=== PATIENT | female | born 1995 | race African-American/Black ===

== ENCOUNTER 2018-09-22 06:57 | Emergency (ER) | payer OTHER ==
[~2018-09-22] VITALS: Ht 162.6 cm; Wt 70.9 kg
[2018-09-22] MEDS ORDERED: ACETAMINOPHEN TAB 650MG DOSE (2X325MG) PO ONE (07:30)
[2018-09-22] MEDS ORDERED: METOCLOPRAMIDE INJ 10MG/2ML VIAL (J2765) IV ONE (07:45)
[2018-09-22] MEDS ORDERED: METOCLOPRAMIDE 10 MG TAB PO ONE (08:30)
--- NOTE | 2018-09-22 08:39 | REP ---
FIRST TRIMESTER ULTRASOUND: Real-time sonographic evaluation of the gravid uterus performed. There is a single living intrauterine gestation. Estimated gestational age is 11 weeks 5 days based on a crown-rump length of 50 mm. heart rate 171 beats per minute. There is no subchorionic hemorrhage. No maternal adnexal region abnormality is seen. Electronically Signed by Del Palomares MD 09/25/2018 05:00 P
[2018-09-22 08:46] LABS: HEMATOCRIT 38.4 % (36.0-47.0); HEMOGLOBIN 12.8 g/dl (12.0-15.5); MEAN CORPUSCULAR HEMOGLOBIN 26.7 pg (27.0-33.0); MEAN CORPUSCULAR HGB CONC 33.3 g/dl (32.0-36.5); MEAN CORPUSCULAR VOLUME 80.2 fl (80.0-96.0); PLATELET COUNT, AUTOMATED 229 10^3/uL (150-450); RED BLOOD COUNT 4.79 10^6/uL (4.00-5.40); WHITE BLOOD COUNT 7.3 10^3/uL (4.0-10.0)
[2018-09-22 10:50] VITALS: BP 115/72
== END 2018-09-22 10:51 | disposition home or self-care (01) ==
LOC: M ED 06:57
DX: O20.0 Threatened abortion (principal); Z3A.11 11 weeks gestation of pregnancy

== ENCOUNTER 2019-04-11 08:05 | Outpatient (CLI) | payer OTHER ==
[~2019-04-11] VITALS: Ht 160 cm; Wt 86.7 kg
[2019-04-11 08:25] VITALS: BP 139/89
[2019-04-11 08:42] VITALS: BP 134/78
--- NOTE | 2019-04-11 08:53 | IPNPDOC ---
Text Note Date of Service The patient was seen on 04/11/19. NOTE patient is a 24 yo G1 @ 39wks gestation presents for regular contraction. denies lof/vb. +FM. vitals: normal NAD, laying in bed abd: gravid, soft, nt, cephalic by yanet fht: 135/mod efrem/pos accel/ no decel toco: ctx q 2-5mins ce: 05/12/-3 (per nursing check) a/p patient in early labor. discussed return precautions. return as needed. DO Irina VS,Carol, I+O VS, Rosae, I+O Vital Signs Date Time Temp Pulse Resp B/P (MAP) Pulse Ox O2 Delivery O2 Flow Rate FiO2 04/11/19 08:31 100 04/11/19 08:25 98.1 93 18 139/89 (106) ALLYSON GUERRA DO Apr 11, 2019 08:53
== END 2019-04-11 09:00 | disposition home or self-care (01) ==
LOC: M LDO 08:05
PROVIDERS: ATTEND Obstetrics & Gynecology
DX: O47.1 False labor at or after 37 completed weeks of gestation (principal); Z3A.39 39 weeks gestation of pregnancy
CPT/HCPCS: 59025; G0378; G0463

== ENCOUNTER 2019-04-14 02:02 | Outpatient (CLI) | payer OTHER ==
[~2019-04-14] VITALS: Ht 162.6 cm; Wt 86.8 kg
[2019-04-14 02:20] VITALS: BP 136/89
[2019-04-14] MEDS ORDERED: ONDANSETRON 4MG/2ML VIAL (J2405) IV PRN (02:45)
[2019-04-14] MEDS ORDERED: BUTORPHANOL 2 MG/ML INJ (J0595) IV ONE (02:45)
[2019-04-14 02:58] VITALS: BP 137/82
[2019-04-14 06:00] VITALS: BP 133/83
[2019-04-14 07:08] VITALS: BP 123/73
--- NOTE | 2019-04-14 07:21 | IPNPDOC ---
Text Note Date of Service The patient was seen on 04/14/19. NOTE 24 yo at 40+2 weeks gestation presented to L&D with the complaint of regular, painful contractions. She denies any vaginal bleeding or leakage of fluid. She endorses excellent movement. Chaperoned by L&D RN Vitals - VSS, afebrile, normotensive, non tachycardic General - AAOX3, sitting up in bed, uncomfortable appearing Abdomen - Gravid uterus, no fundal tenderness Cervix - 50/-3. Patient declined repeat cervical exam 4 hours later. FHR tracing - Cat I with moderate variability, +accels, no decels throughout monitoring. Sporadic ctx on toco. 2mg IV stadol given for therapeutic rest. Ivon is not in active labor. She got excellent pain relief from IV medication and actually declined a repeat cervical exam 4 hours later and wanted to return home. Contractions were sporadic on toco. Reassuring status throughout monitoring. Discharged home with return precautions. Follow up appointment scheduled for Tuesday. DO SANJAY Lindsey Fishbone I+O VSCarol, I+O Vital Signs Date Time Temp Pulse Resp B/P (MAP) Pulse Ox O2 Delivery O2 Flow Rate FiO2 04/14/19 07:08 89 18 123/73 (90) 04/14/19 06:00 97.9 BRENT PENA DO Apr 14, 2019 07:21
[2019-04-15] MEDS ORDERED: MAPA500T2 PO (19:06)
== END 2019-04-14 07:29 | disposition home or self-care (01) ==
LOC: M LDO 02:02
PROVIDERS: ATTEND Obstetrics & Gynecology
DX: O26.893 Other specified pregnancy related conditions, third trimester (principal); O47.1 False labor at or after 37 completed weeks of gestation; Z3A.40 40 weeks gestation of pregnancy
CPT/HCPCS: 59025; 96374; G0378; G0463; J0595

== ENCOUNTER 2019-04-15 17:57 | Outpatient (CLI) | payer OTHER ==
[~2019-04-15] VITALS: Ht 162.6 cm; Wt 84.4 kg
[2019-04-15 18:10] VITALS: BP 140/90
[2019-04-15 18:43] VITALS: BP 131/84
--- NOTE | 2019-04-15 18:57 | IPNPDOC ---
Text Note Date of Service The patient was seen on 04/15/19. NOTE patient is a 24 yo G1 @ 40+3wks gestation presents with concern for regular painful contractions. unable to sleep due to contractions. denies LOF/VB. +FM Vitals: 131/84, HR: 102 nad, laying in bed abd: gravid, soft, nt, cephalic by yanet fht: 125/mod efrem/pos accel/no decel toco: ctx q5mins ce: /high (per nursing exam) a/p patient is @ 40+3wks, no in active labor. Discussed return precautions. patient given unisom 25mg prn for sleep aide. return as needed. DO Irina VS,Carol, I+O VS, Fishleoe, I+O Vital Signs Date Time Temp Pulse Resp B/P (MAP) Pulse Ox O2 Delivery O2 Flow Rate FiO2 04/15/19 18:10 97 20 140/90 (107) ALLYSON GUERRA DO Apr 15, 2019 18:57
[2019-04-15] MEDS ORDERED: MAPA500T2 PO (19:06)
[2019-04-16] MEDS ORDERED: UNIS25TA3 PO (03:56)
== END 2019-04-15 19:13 | disposition home or self-care (01) ==
LOC: M LDO 17:57
PROVIDERS: ATTEND Obstetrics & Gynecology
DX: O47.1 False labor at or after 37 completed weeks of gestation (principal); Z3A.40 40 weeks gestation of pregnancy
CPT/HCPCS: 59025; G0378; G0463

== ENCOUNTER 2019-04-16 02:25 | Inpatient (IN) | payer OTHER ==
[~2019-04-16] VITALS: Ht 162.6 cm; Wt 84.2 kg
[2019-04-16] VITALS (44 sets, daily range): BP systolic 107–148; BP diastolic 58–106
[~2019-04-16 02:25] MED LIST: MAPA500T2 PO
[2019-04-16] MEDS ORDERED: NALBUPHINE HCL 10 MG/ML AMP (J2300) IM ONE (03:45)
[2019-04-16] MEDS ORDERED: PROMETHAZINE INJ 25 MG/ML VIAL (J2550) IV ONE (03:45)
[2019-04-16] MEDS ORDERED: NALBUPHINE HCL 10 MG/ML AMP (J2300) IV ONE (03:45)
[2019-04-16] MEDS ORDERED: UNIS25TA3 PO (03:56)
--- NOTE | 2019-04-16 03:59 | IPNPDOC ---
Text Note Date of Service The patient was seen on 04/16/19. NOTE patient is a 24 yo G1 @ 40+4wks gestation presents with concern for regular painful contractions. unable to sleep due to contractions. denies LOF/VB. +FM patient desires pain medication. Vitals: 135/89, HR: 91 nad, laying in bed abd: gravid, soft, nt, cephalic by yanet fht: 125/mod efrem/pos accel/no decel toco: ctx q5mins ce: /-3 (per nursing exam) a/p patient is @ 40+4wks in latent labor. will give IV pain medications and recheck once patient wakes up. DO Irina VS,Carol, I+O VS, Rosae, I+O Vital Signs Date Time Temp Pulse Resp B/P (MAP) Pulse Ox O2 Delivery O2 Flow Rate FiO2 04/16/19 02:43 98.2 91 18 135/89 (104) ALLYSON GUERRA DO Apr 16, 2019 03:59
[2019-04-16] MEDS ORDERED: LR 1,000 ML IV ONE (04:00)
[2019-04-16 05:02] LABS: HEMATOCRIT 33.5 % (36.0-47.0); HEMOGLOBIN 10.4 g/dl (12.0-15.5); MEAN CORPUSCULAR VOLUME 74.1 fl (80.0-96.0); PLATELET COUNT, AUTOMATED 248 10^3/uL (150-450); RED BLOOD COUNT 4.52 10^6/uL (4.00-5.40); WHITE BLOOD COUNT 15.5 10^3/uL (4.0-10.0)
[2019-04-16] MEDS ORDERED: OXYTOCIN DRIP 30 UNITS in IV 1 EA IV SCH ×2 (12:00→21:55)
[2019-04-16] MEDS ORDERED: LR 1,000 ML IV SCH (12:00)
--- NOTE | 2019-04-16 12:06 | HPEPDOC ---
Obstetrical History & Physical General Date of Admission Apr 16, 2019 at 03:08 History of Present Illness 24 yo at 40+4 weeks gestation by LMP of 06Jul2018 c/w 8+5 week US on 05Sep2018 presented to L&D overnight with the complaint of regular, painful contractions. She has been seen numerous times on L&D over the last week with the same complaint. She made cervical change from 1cm to 4cm as of this this morning. She denies any vaginal bleeding or leakage of fluid. She endorses excellent movement. 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: No pertinent history, Spontaneous Past Medical History Medical History Sickle cell carrier --> FOB tested and negative Surgical History: Denies/None Family History Significant Family History: No pertinent family hx Social History Marital Status: Family situation: Spouse/partner home Psychosocial History: No pertinent psych hx * Smoker: non-smoker Alcohol: Denies Drugs: denies Imunizations Tdap status: current Influenza Status: current Allergies Coded Allergies: No Known Drug Allergies (Verified Allergy, Unknown, 09/22/18) Medications Scheduled Doxylamine Succinate (Unisom Sleep Aid) 25 Mg Tablet, 2 TAB PO QPM Miscellaneous Medications Acetaminophen (Mapap) 500 Mg Tablet, 1,000 MG PO Physical Examination Physical Examination GENERAL: Alert and oriented times three. ABDOMEN: Gravid and non-tender to touch. FETUS: Is vertex (VTX) by sterile vaginal examination (SVE) EXTREMITIES: No edema. Vital Signs/I&O Vital Signs Date Time Temp Pulse Resp B/P (MAP) Pulse Ox O2 Delivery O2 Flow Rate FiO2 04/16/19 11:32 98.6 95 16 134/81 (98) Laboratory Data 24H LABS Laboratory Tests 2 04/16/19 03:11: Serology Scanned Report Hepatitis B Testing 04/16/19 04:32: Nucleated Red Blood Cells % (auto) 0.0 CBC/BMP Laboratory Tests 04/16/19 04:32 Pertinent Laboratoy Data Blood Type: A+ RBC Antibody Screen: Negative HIV: Negative Hepatitis B: Negative Hepatitis C: Unknown Rapid Plasma Reagin: Nonreactive Rubella: Immune Varicella: Immune Chlamydia/Gonorrhea: Negative Group B Streptococcus: Negative Quad Screen Test: Unknown Cystic Fibrosis: Negative Glucose Tolerance Test: 130 Anatomy Ultrasound Ultrasound Date: Dec 25, 2018 Placenta Location: Posterior Normal Anatomy: Yes Placenta Previa: No Steroid Therapy Steroid Therapy: No Vaginal Examination Dilation: 4 cm Effacement: 80% Station: -3 Cervical Consistency: Soft Cervical Position: Middle Presentation: Cephalic presentation Position: Vertex (occiput) Assessment Heart Rate (FHR): 150 Variability: Moderate Accelerations: Positive Decelerations: None Tocometer Contractions: Yes Frequency: every 3-7 min. Duration: less than 60 seconds Strength: palpated as moderate Assessment/Plan Assessment 24 yo at 40+4 weeks gestation presented in early labor. Made change from 1cm to 4cm over the last 24 hours. Plan Admit to L&D for early labor. Will augment labor with pitocin as she has made no cervical change for the last 8 hours. Apply IV fluids. Patient may have epidural if desired. GBS negative. I discussed labor augmentation with pitocin in detail with Ms. Lamb. I discussed the monitoring necessary when using it. I also discussed with her that labor augmentation with pitocin does increase risk of heart rate abnormalities and potentially even delivery. I gave her the option to return home to see if she progresses further on her own. However, she would like to proceed with pitocin augmentation and does not want to return home. Will proceed. All patient questions answered. DO BECKY Lindsey CHRISTOPHER J. DO Apr 16, 2019 12:06
[2019-04-16] MEDS ORDERED: FENTANYL 2MCG/ML ROPIVACAINE 0.2% IN 0.9% NACL 100ML IVBAG As Ordered ONE (14:03)
[2019-04-16] MEDS ORDERED: EPIDURAL COMMENT XX SCH (15:30)
[2019-04-16] MEDS ORDERED: ePHEDrine SULFATE 25 MG/5 ML(5MG/ML) SYRINGE IV PRN (15:30)
[2019-04-16] MEDS ORDERED: FENTANYL/ROPIVACAINE/NACL BAG 100 ML EPIDURAL SCH (15:30)
[2019-04-16] MEDS ORDERED: EPIDURAL/PCA KEYS XX PRN (15:30)
[2019-04-16] MEDS ORDERED: ONDANSETRON 4MG/2ML VIAL (J2405) IV PRN (15:30)
[2019-04-16] MEDS ORDERED: REFRIGERATOR IV KEYS XX PRN (15:30)
[2019-04-16] MEDS ORDERED: diphenhydrAMINE INJ 50MG/ML VIAL (J1200) IV PRN (15:30)
[2019-04-16] MEDS ORDERED: LACTATED RINGER'S 1000 ML IV PRN (15:30)
[2019-04-16] MEDS ORDERED: NALOXONE INJ 0.4 MG/1 ML VIAL (J2310) IV PRN (15:30)
--- NOTE | 2019-04-16 18:13 | IPNPDOC ---
Text Note Date of Service The patient was seen on 04/16/19. NOTE Presented to room for assessment of progress. SROM, clear fluid, occurred at ~1630. Patient comfortable with epidural in place, but feels slight pressure. Cervix: AL/C/0. FHR tracing - Cat I with moderate variability, +accels, no decels. Pitocin at 6mU. Contractions regular. Ivon is progressing well. Anticipate beginning of 2nd stage soon. Brent pena DO VS,Carol, I+O VS, Carol, I+O Laboratory Tests 04/16/19 04:32 Vital Signs Date Time Temp Pulse Resp B/P (MAP) Pulse Ox O2 Delivery O2 Flow Rate FiO2 04/16/19 17:57 96 16 129/76 (93) 04/16/19 15:13 98.7 BRENT PENA DO Apr 16, 2019 18:13
[2019-04-16 21:46] LABS: CORD GAS ABE A -12.2; CORD GAS ABE V -9.9; CORD GAS HCO3 A 19.9 MEQ/L; CORD GAS HCO3 V 18.2 MEQ/L; CORD GAS O2 SAT A 25.3 %; CORD GAS O2 SAT V 64.5 %; CORD GAS PCO2 V 47.5 mmHg; CORD GAS PH A 7.048 UNITS; CORD GAS PH V 7.201 UNITS; CORD GAS PO2 A 19.9 mmHg; CORD GAS PO2 V 31.2 mmHg; CORD GAS SBC A 13.7 MEQ/L; CORD GAS SBC V 16.1 MEQ/L; CORD GAS TCO2 A 22.2 MEQ/L; CORD GAS TCO2 V 19.6 MEQ/L
[2019-04-16] MEDS ORDERED: IBUPROFEN 600 MG TAB PO PRN (22:00)
[2019-04-16] MEDS ORDERED: RHOGAM 300 MCG (1500 IU) INJ (J2790) IM SCH (22:00)
[2019-04-16] MEDS ORDERED: DOCUSATE SODIUM 100 MG CAP PO PRN (22:00)
[2019-04-16] MEDS ORDERED: DIBUCAINE 1% OINTMENT 30GM TOP PRN (22:00)
[2019-04-16] MEDS ORDERED: ACETAMINOPHEN 500 MG TAB PO PRN (22:00)
[2019-04-16] MEDS ORDERED: IBUPROFEN 800 MG TAB PO PRN (22:00)
[2019-04-16] MEDS ORDERED: PROMETHAZINE 25 MG TAB PO PRN (22:00)
[2019-04-16] MEDS ORDERED: ACETAMINOPHEN TAB 650MG DOSE (2X325MG) PO PRN (22:00)
[2019-04-16] MEDS ORDERED: MEASLES,MUMPS,RUBELLA VACCINE INJ (MMR-II) (90707) SC SCH (22:00)
--- NOTE | 2019-04-16 22:10 | DNPDOC ---
[facility] Delivery Note Delivery Note DATE OF DELIVERY: [id number] at ~2130 PREDELIVERY DIAGNOSIS: 40+4 weeks gestation and labor POST DELIVERY DIAGNOSIS: Delivered. PROCEDURE: Spontaneous vaginal delivery SWEET PICKLED FRUIT MAKER: Dr. Alan ANESTHESIA: Epidural ESTIMATED BLOOD LOSS: 250 mL. FINDINGS: Viable male , weight 6lbs 6oz, Apgars 7/8/9 DELIVERY SUMMARY: Ivon progressed well into active stage labor and began pushing with her fetus at +1 station. She pushed for about 2 hours and with excellent effort her infant delivered. presentation was ERICA with restitution to LOT. The right anterior shoulder delivered with gentle traction followed easily by the remainder of the body. There was a loose nuchal cord that was delivered through and reduced manually. The was dried and stimulated on the field. The did not cry vigorously with delivery, thus the cord was clamped and cut immediately by the mother of the baby under my direction. The was then taken to the warmer under care of the nurse. Dr. Fu of neonatology was then called to the room to assess the baby as a precautionary measure. Third stage was then completed with gentle traction on the three vessel cord and it was productive of an intact placenta. The uterine fundus was firmed with massage and pitocin was administered via IV bolus. Inspection of the vagina, perineum, and cervix revealed a midline first degree laceration and a right sublabial laceration. These lacerations were repaired with 3-0 vicryl suture and 4-0 vicryl suture in the usual fashion. There was excellent cosmesis and hemostasis after the repair. The fundus was palpated again and was firm. Sponge, instrument, and needle counts were correct X2. Mother and stable when I left the room. DO BECKY Lindsey CHRISTOPHER J. DO Apr 16, 2019 22:10
[2019-04-17 01:25] VITALS: BP 119/69
[2019-04-17 05:37] VITALS: BP 112/64
--- NOTE | 2019-04-17 07:22 | IPNPDOC ---
Progress Note Date of Service: Apr 17, 2019 Progress Note Ms. Lamb is a 24 yo G2 now P1 who underwent an uncomplicated yesterday evening after being admitted for early labor and receiving pitocin augmentation. There were no acute events overnight. Ivon is sleeping soundly. I did not awaken her. Vitals - VSS, afebrile, normotensive, non tachycardic General - sleeping soundly in bed UO - Voiding on own Ivon is sleeping soundly and I did not awaken her at the bedside. She is doing well and making a good recovery. Likely will discharge home tomorrow if she continues to do well. DO Waqas VS, I&O, 24H, Fishbone Vital Signs/I&O Vital Signs Date Time Temp Pulse Resp B/P (MAP) Pulse Ox O2 Delivery O2 Flow Rate FiO2 04/17/19 05:37 98.7 95 18 112/64 (80) 99 Room Air I&O- Last 24 Hours up to 6 AM 04/17/19 06:00 Intake Total 4216.3 ml Output Total 1050 ml Balance 3166.3 ml Laboratory Data 24H LABS Laboratory Tests 2 04/16/19 21:36: Cord Arterial Blood pH 7.048, Cord Arterial Blood PCO2 74.0, Cord Arterial Blood PO2 19.9, Cord Arterial Blood HCO3 19.9, Cord Arterial Blood Total CO2 22.2, Cord Arterial Blood Base Excess -12.2, Cord Arterial Base Excess (Standard 13.7, Cord Arterial Bld Oxygen Saturation 25.3, Cord Venous Blood pH 7.201, Cord Venous Blood PCO2 47.5, Cord Venous Blood PO2 31.2, Cord Venous Blood HCO3 18.2, Cord Venous Blood Total CO2 19.6, Cord Venous Base Excess (Actual) -9.9, Cord Venous Base Excess (Standard) 16.1, Cord Venous Blood Oxygen Saturation 64.5 BRENT PENA DO Apr 17, 2019 07:21
[2019-04-17] MEDS: PRENATAL VITAMINS CHEWABLE TABLET PO SCH (09:11)
[2019-04-17 17:50] VITALS: BP 114/68
[2019-04-18 06:13] VITALS: BP 105/62
[2019-04-18] MEDS ORDERED: IBUP80TA PO (07:12)
[2019-04-18] MEDS ORDERED: DIBU10OI TOP (07:12)
[2019-04-18] MEDS ORDERED: DOCU100C16 PO (07:12)
[2019-04-18] MEDS: PRENATAL VITAMINS CHEWABLE TABLET PO SCH (09:00)
--- NOTE | 2019-04-18 18:56 | DSES ---
DATE OF ADMISSION: 04/16/2019 DATE OF DISCHARGE: 04/18/2019 A 24-year-old 2, para 1 was admitted at 40 and 4 weeks of gestation with contractions, had a spontaneous vaginal delivery male with epidural in place, 6 pounds 6 ounces, scores of 7, 8 and 9 at one, five and ten minutes respectively. Arterial pH 7.04, base excess -12.2, venous pH 7.20, base excess -9.9. She had a first-degree tear and a right labial laceration repaired in the usual fashion. On her second day, we discussed phlebitis, cystitis, mastitis, endometritis and cellulitis, diet, exercise, pain management, perineal, breast and wound care. The rest of the examination was unremarkable. Normocephalic, atraumatic. Neck full range of motion. Pupils equal and reactive to light. Distal pulses symmetric. No evidence of deep venous thrombosis (DVT), pulmonary embolism (PE), or superficial phlebitis. Chest is clear bilaterally to the bases, no wheezes or rhonchi. No costovertebral angle (CVA) tenderness. Abdomen soft. Uterus two below. Lochia is moderate. Four quadrant bowel sounds are noted. Perineum is healing. No rashes, lesions or pruritus. No arthralgias or myalgias. No complaint of joint pain. No complaint of cough, wheeze, shortness breath or dyspnea on exertion. No nausea, vomiting, diarrhea or constipation. No urgency or frequency. Blood pressure was 105/62, respirations 18, pulse 97, temperature 98.3. Admitting hemoglobin was 10.4, hematocrit 33.5 and platelets are 248. In summary, we have a term gestation, delivered a live male , discharged to follow up the office in six weeks' time. Medications were dispensed at [place]. Patient expressed understanding of all concerns. All questions were answered. A 20-minute discussion.
--- NOTE | 2019-04-23 13:30 | IPN ---
DATE: 04/17/2019 The patient and her requested circumcision of their male after risks and benefits were explained, medical and nonmedical indications, and patient expressed understanding of penile block and aftercare, signed the consent form. All questions were answered. 20-minute discussion. Await the clearance by the fnps.
== END 2019-04-18 15:00 | disposition home or self-care (01) | DRG 807 ==
LOC: M LDO 02:25 → M LDI 03:08 → M OBS 04-17 01:06
PROVIDERS: ADMIT Obstetrics & Gynecology; ATTEND Obstetrics & Gynecology
PROC: 10E0XZZ Delivery of Products of Conception, External Approach (ICD-10-PCS; principal; 2019-04-16)
PROC: 0HQ9XZZ Repair Perineum Skin, External Approach (ICD-10-PCS; 2019-04-16)
DX: O48.0 Post-term pregnancy (principal); Z37.0 Single live birth; Z3A.40 40 weeks gestation of pregnancy; O69.81X0 Labor and delivery complicated by cord around neck, without compression, not applicable or unspecified; O70.0 First degree perineal laceration during delivery

== ENCOUNTER 2020-05-01 06:21 | Observation (INO) | payer OTHER ==
[~2020-05-01] VITALS: Ht 160 cm; Wt 85.3 kg
[~2020-05-01 06:21] MED LIST changes: +DIBU10OI TOP; +DOCU100C16 PO; +HEPARIN SOD (PORCINE) 5000UNITS/ML 1ML VIAL/SYRINGE SQ ONE; +IBUP80TA PO; +LR 1,000 ML IV ONE; +UNIS25TA3 PO; +ceFAZolin SOD 2 GM in IV 1 EA IV ONE
--- OUTSIDE RECORDS SUMMARY | 2020-05-01 06:32 | CCD | Continuity of Care Document ---
Author Author Ivon COTE DO Organization Unknown Address [address] [place] [address] Phone [phone] Care Team Providers Care Architectural Representative Name Role Phone Tesfaye Ayala Unavailable Problems Description No Information Available Social History Type Date Description Comments Sex Female ETOH Use Occasionally consumes alcohol Tobacco Use Start: Unknown Denies Smoking Recreational Drug Use Denies Drug Use Smoking Status Reviewed: 08/29/19 Denies Smoking Allergies, Adverse Reactions, Alerts Description No Known Drug Allergies Medications Active Medications SIG Qnty Indications Ordering Provide r Date Ibuprofen 800mg Tablets 1 by mouth every day Unknown Immunizations Description No Information Available Vital Signs Date Vital Result Comment 12/19/2019 2:01pm BP Systolic 122 mmHg BP Diastolic 76 mmHg Heart Rate 74 /min Respiratory Rate 14 /min Body Temperature 98.7 F Height 64 inches 5'4" Weight 184.00 lb BMI (Body Mass Index) 31.6 kg/m2 [place] Body Weight 120 lb Weight 83.462 kg BSA (Body Surface Area) 1.89 m2 08/29/2019 2:08pm BP Systolic 110 mmHg BP Diastolic 78 mmHg Height 64 inches 5'4" Weight 184.25 lb BMI (Body Mass Index) 31.6 kg/m2 Mcdaniels Body Weight 120 lb Weight 83.576 kg BSA (Body Surface Area) 1.89 m2 Results Description No Information Available Procedures Description No Information Available Medical Devices Description No Information Available Encounters Type Date Location Provider Dx Diagnosis Office Visit 12/19/2019 2:00p [facility] Olesya Cote DO N62 Hypertrophy of breast N64.81 Ptosis of breast Assessments Date Code Description Provider 12/19/2019 N62 Hypertrophy of breast Olesya cruz DO 12/19/2019 N64.81 Ptosis of breast Olesya Cote DO Plan of Treatment Future Appointment(s):* 05/01/2020 7:30 am - Olesya Cote DO at [facility] * 05/05/2020 11:30 am - Olesya Cote DO at [facility] Functional Status Description No Information Available Mental Status Description No Information Available Referrals Description No Information Available
--- OUTSIDE RECORDS SUMMARY | 2020-05-01 06:33 | CCD ---
Author Author [facility] Organization [facility] Address Unknown Phone Unavailable Care Team Providers Care Pantograph Watcher Name Role Phone ROCAEL, E DENICE DO Unavailable Unavailable ROCAEL, E DENICE DO Unavailable Unavailable ROCAEL, E DENICE DO Unavailable Unavailable ROCAEL, E DENICE DO Unavailable Unavailable ROCAEL, E DENICE DO Unavailable Unavailable ROCAEL, E DENICE DO Unavailable Unavailable ROCAEL, E DENICE DO Unavailable Unavailable ROCAEL, E DENICE DO Unavailable Unavailable ROCAEL, E DENICE DO Unavailable Unavailable ROCAEL, E DENICE DO Unavailable Unavailable ROCAEL, E DENICE DO Unavailable Unavailable ROCAEL, E DENICE DO Unavailable Unavailable ROCAEL, E DENICE DO Unavailable Unavailable ROCAEL, E DENICE DO Unavailable Unavailable ROCAEL, E DENICE DO Unavailable Unavailable ROCAEL, E DENICE DO Unavailable Unavailable ROCAEL, E DENICE DO Unavailable Unavailable ROCAEL, E DENICE DO Unavailable Unavailable ROCAEL, E DENICE DO Unavailable Unavailable ROCAEL, E DENICE DO Unavailable Unavailable ROCAEL, E DENICE DO Unavailable Unavailable Re-disclosure Warning The records that you are about to access may contain information from federally-assisted alcohol or drug abuse programs. If such information is present, then the following federally mandated warning applies: This information has been disclosed to you from records protected by federal confidentiality rules (42 CFR part 2). The federal rules prohibit you from making any further disclosure of this information unless further disclosure is expressly permitted by the written consent of the person to whom it pertains or as otherwise permitted by 42 CFR part 2. A general authorization for the release of medical or other information is NOT sufficient for this purpose. The Federal rules restrict any use of the information to criminally investigate or prosecute any alcohol or drug abuse patient.The records that you are about to access may contain highly sensitive health information, the redisclosure of which is protected by Article 27-F of the [facility] Public Health law. If you continue you may have access to information: Regarding HIV / AIDS; Provided by facilities licensed or operated by the [facility] Office of Mental Health; or Provided by the [facility] Office for People With Developmental Disabilities. If such information is present, then the following [facility] mandated warning applies: This information has been disclosed to you from confidential records which are protected by state law. State law prohibits you from making any further disclosure of this information without the specific written consent of the person to whom it pertains, or as otherwise permitted by law. Any unauthorized further disclosure in violation of state law may result in a fine or alf sentence or both. A general authorization for the release of medical or other information is NOT sufficient authorization for further disc losure. Encounters Encounter Providers Location Date Indications Data Source(s ) Outpatient Attender: DENICE Granado/Azra/Jones/Marcelled hayley 12/19/2019 02:00:00 PM EDT [facility] ([facility], ) Outpatient Attender: DENICE Granado/Azra/Jones/Marcelled hayley 08/29/2019 02:00:00 PM EDT [facility] ([facility], ) Insurance Providers Payer name Policy type / Coverage type Policy ID Covered constitution party ID Covered constitution party's relationship to colon Policy Colon Plan Information [facility] [id number] Vital Signs ID Date Data Source UNK Name Value Range Interpretation Code Description Data Source(s) Body surface area Derived from formula 1.89 m2 1.89 m2 [facility] ([facility], ) Body weight 83.462 kg 83.462 kg [facility] ([facility]) [place] body weight 120 [lb_av] 120 [lb_av] [facility] ([facility]) Body mass index (BMI) [Ratio] 31.6 kg/m2 31.6 k g/m2 [facility] Body weight 184.00 [lb_av] 184.00 [lb_av] [facility] ([facility]) Body height 64 [in_i] 64 [in_i] [facility] ([facility]) 5'4" Body temperature 98.7 [degF] 98.7 [degF] [facility] ([facility]) Respiratory rate 14 /min 14 /min [facility] ( [facility]) Heart rate 74 /min 74 /min [facility] ([facility]) Diastolic blood pressure 76 mm[Hg] 76 mm[Hg] [facility] ([facility]) Systolic blood pressure 122 mm[Hg] 122 mm[Hg] [facility] ([facility]) Body surface area Derived from formula 1.89 m2 1.89 m2 [facility] ([facility]) Body weight 83.576 kg 83.576 kg [facility] ([facility]) [place] body weight 120 [lb_av] 120 [lb_av] [facility] ([facility]) Body mass index (BMI) [Ratio] 31.6 kg/m2 31.6 k g/m2 [facility] ([facility]) Body weight 184.25 [lb_av] 184.25 [lb_av] [facility] ([facility]) Body height 64 [in_i] 64 [in_i] [facility] ([facility]) 5'4" Diastolic blood pressure 78 mm[Hg] 78 mm[Hg] [facility] ([facility]) Systolic blood pressure 110 mm[Hg] 110 mm[Hg] [facility] ([facility])
[2020-05-01] MEDS ORDERED: LACRILUBE (AKWA TEARS) OPHTH OINT 3.5 GM As Ordered ONE (07:11)
[2020-05-01] MEDS ORDERED: fentaNYL 100 MCG/2 ML INJECTION (J3010) As Ordered ONE ×2 (07:15→08:16)
[2020-05-01] MEDS ORDERED: ONDANSETRON 4MG/2ML VIAL As Ordered ONE (07:16)
[2020-05-01] MEDS ORDERED: dexameTHASONE 4 MG/ML 1ML VIAL (J1100 PER 1MG) As Ordered ONE (07:16)
[2020-05-01] MEDS ORDERED: propofoL 200 MG/20 ML VIAL As Ordered ONE ×2 (07:16→08:19)
[2020-05-01] MEDS ORDERED: LIDOCAINE 2% 100MG/5ML SDV (FOR ANES.) As Ordered ONE ×2 (07:16→10:42)
[2020-05-01] MEDS ORDERED: MIDAZOLAM INJ 2MG/2ML VIAL (J2250 PER 1MG) As Ordered ONE (07:16)
[2020-05-01] MEDS ORDERED: ROCURONIUM BROMIDE 50 MG/5 ML VIAL As Ordered ONE ×3 (07:16→09:27)
[2020-05-01] MEDS ORDERED: BUPIVACAINE LIPOSOME/PF 1.3% 20ML VIAL (13.3MG/ML)(EXPAREL)(C9290 PER1MG) As Ordered ONE (07:19)
[2020-05-01] MEDS ORDERED: BACITRACIN PWD 50,000 UNITS VIAL As Ordered ONE (07:19)
[2020-05-01] MEDS ORDERED: KETOROLAC 60MG 2ML VIAL As Ordered ONE (10:46)
[2020-05-01] MEDS ORDERED: ACETAMINOPHEN 1000MG 100ML IV BTL (OFIRMEV) (J0131 PER 10MG) As Ordered ONE (10:46)
[2020-05-01] MEDS ORDERED: SUGAMMADEX SODIUM 500 MG/5 ML VIAL (BRIDION) As Ordered ONE (10:49)
[2020-05-01] MEDS ORDERED: METOCLOPRAMIDE INJ 10MG/2ML VIAL (J2765 PER 1) As Ordered ONE (11:00)
--- NOTE | 2020-05-01 11:48 | POST-OPPD ---
Postoperative Procedure Note Date Of Procedure: May 01, 2020 PREOPERATIVE DIAGNOSIS: Bilateral breast hypertrophy POSTOPERATIVE DIAGNOSIS: same FINDINGS: Large breast PROCEDURE: bilateral breast reduction SURGEON: Dr Cote ANESTHESIA: General SPECIMENS: Right breast 930gm, Left breast 916gm ESTIMATED BLOOD LOSS: 100cc REPLACED: none DRAINS: 10 mm [id number] x 2 COMPLICATIONS: none POSTOPERATIVE CONDITION: stable. DENICE COTE DO May 01, 2020 11:48
[2020-05-01] MEDS ORDERED: ONDANSETRON 4MG/2ML VIAL IV PRN ×2 (12:00→12:30)
[2020-05-01] MEDS ORDERED: KETOROLAC TROMETHAMINE 10 MG TAB PO PRN (12:00)
[2020-05-01] MEDS ORDERED: ACETAMINOPHEN TAB 650MG DOSE (2X325MG) PO PRN (12:00)
[2020-05-01] MEDS ORDERED: PERCOCET 5MG/325MG TAB As Ordered ONE (12:06)
[2020-05-01] MEDS: PERCOCET 5MG/325MG TAB PO PRN ×3 (12:26→18:59)
[2020-05-01] MEDS ORDERED: LR 1,000 ML IV SCH (12:30)
[2020-05-01] MEDS ORDERED: METOCLOPRAMIDE INJ 10MG/2ML VIAL (J2765 PER 1) IV PRN (12:30)
[2020-05-01] MEDS ORDERED: fentaNYL 100 MCG/2 ML INJECTION (J3010) IV PRN (12:30)
[2020-05-01 13:45] VITALS: BP 108/68
--- NOTE | 2020-05-01 14:07 | ROOPDOC ---
[facility] Report Of Operation Report of Operation DATE OF PROCEDURE 05/01/20 PREOPERATIVE DIAGNOSIS: Bilateral breast hypertrophy POSTOPERATIVE DIAGNOSIS: same FINDINGS: Large breast PROCEDURE: bilateral breast reduction SURGEON: Dr Cote ANESTHESIA: General SPECIMENS: Right breast 930gm, Left breast 916gm ESTIMATED BLOOD LOSS: 100cc REPLACED: none DRAINS: 10 mm WOLFGANG x 2 COMPLICATIONS: none POSTOPERATIVE CONDITION: stable. DESCRIPTION OF PROCEDURE: This is a 25-year-old female who upper back and neck pain worsened by large breasts. She wears 38H bra. She is scheduled for bilatera l breast reduction. Risks, benefits, and alternatives were discussed with the patient in detail, and she is ready to proceed. The day of surgery, she was marked in the upright position and informed consent was obtained. She measured 36.5 cm on the left and 35cm on the right from sternal notch to nipple on both sides, IMF at 22 cm bilaterally. She was brought into the operating room and placed in the supine position. Preoperative antibiotics were given. Sequential pneumatic stocking were placed on the lower calves. General anesthesia was induced. She was prepped and draped in the usual sterile fashion. We started our procedure on the right side. Her nipple areolar complex was outlined 45 mm in diameter, and the patient was marked according superior medial pedicle. We started our incision by scoring the nipple areolar complex area, and then dissection was continued until the inferior lateral portion of the breast was resected. Hemostasis was obtained using electrocautery. The pedicle was de- epithelialized using Fritz scissors, good perfusion to the nipple at all times. Wound was irrigated with Bacitracin solution. We used Exparel 6 cc for local anesthesia to infiltrate in the Pectoralis muscle as well as the breast tissue. Than pedicle was turned superior to its new location at 22 cm from sternal notch. The mound was re-created using conforming 0 Vicryl sutures. Pillars were closed with interrupted 3-0 Monocryl sutures. The vertical limb was 9 cm. Excess tissue inferiorly was measured and resected, creating the horizontal scar. Nipple area complex was brought into view through the new opening and sutured in place with 3-0 and 4-0 Monocryl sutures and a 5-0 plain. A 10 mm Jatin-Ojeda drain was placed through the lateral portion of the horizontal incision. Then we turned our attention to the left side. Mirror procedure was carried out. Again, resection was done according to superior-medial pedicle using electrocautery and PEEK cautery. Hemostasis was obtained. The pedicle was in good viable condition. Exparel was infiltrated through the pectoralis muscle and the breast tissue 6 cc. Than pedicle was turned superior to its new location at 22 cm from sternal notch. The mound was re-created using conforming 0 Vicryl sutures. Pillars were closed with interrupted 3-0 Monocryl sutures. The vertical limb was 9 cm. Excess tissue inferiorly was measured and resected, creating the horizontal scar. Nipple area complex was brought into view through the new opening and sutured in place with 3-0 and 4-0 Monocryl sutures and a 5-0 plain. A 10 mm Jatin-Ojeda drain was placed through the lateral portion of the horizontal incision. Total excision on the Right breast is 930 gm, on the left breast 916gm Resected tissue sent to pathology in two specimens right and left breast tissue. Dressings were applied to vertical and horizontal incision: Prineo. Nipples areolar complex: Xeroform and a bulky dressing with a surgical bra. Patient was extubated in the operating room without difficulty and was transferred to the recovery room in stable condition. DENICE COTE DO May 01, 2020 14:07
[2020-05-01 14:15] VITALS: BP 105/68
[2020-05-01 15:15] VITALS: BP 107/71
[2020-05-01 17:15] VITALS: BP 107/86
[2020-05-01] MEDS: CEPACOL LOZENGE PO PRN ×2 (17:18→21:31)
[2020-05-01] MEDS: ceFAZolin SOD 1 GM in D5W MINI-BAG PLUS 50 ML IV SCH (17:18)
[2020-05-01] MEDS: LR 1,000 ML IV SCH (17:18)
[2020-05-01 21:25] VITALS: BP 109/65
[2020-05-02] MEDS: ceFAZolin SOD 1 GM in D5W MINI-BAG PLUS 50 ML IV SCH ×2 (00:34→08:45)
[2020-05-02] MEDS: LR 1,000 ML IV SCH ×2 (00:34→07:55)
[2020-05-02 02:00] VITALS: BP 109/67
[2020-05-02] MEDS: CEPACOL LOZENGE PO PRN ×2 (05:13→08:45)
[2020-05-02] MEDS: PERCOCET 5MG/325MG TAB PO PRN ×2 (05:14→10:24)
[2020-05-02 05:17] VITALS: BP 112/69
--- NOTE | 2020-05-02 08:56 | IPNPDOC ---
Subjective General Date Seen: May 02, 2020 Subject Chief Complaint/History The patient is a 25-year-old female admitted with a reason for visit of Bilateral Breast Hypertrophy. Patient s/p BBR POD 1. Patient is doing well, no pain, no nausea, no vomiting. Ambulating to the bathroom. Current Medications Current Medications Current Medications Medications (Trade) Dose Ordered Sig/Roby Route PRN Reason Start Time Stop Time Status Last Admin Dose Admin Acetaminophen (Tylenol Tab) 650 mg Q6H PRN PO MILD PAIN (PS 1-4) 05/01/20 12:00 Cefazolin Sodium 1 gm/Dextrose 50 ml @ 100 mls/hr Q8H IV 05/01/20 16:00 05/02/20 08:45 Cetylpyridinium Chloride (Cepacol) 1 phill Q2HP PRN PO COUGH 05/01/20 15:00 05/02/20 08:45 Fentanyl Citrate (Sublimaze) 25 mcg Q5MP PRN IV PAIN LEVEL 5-10 05/01/20 12:30 05/01/20 13:30 DC Ketorolac Tromethamine (ToRADol) 10 mg Q6HP PRN PO MODERATE PAIN (PS 5-7) 05/01/20 12:00 05/06/20 11:59 Lactated Ringer's 1,000 ml @ 75 mls/hr [id number] IV 05/01/20 11:48 05/02/20 07:55 Lactated Ringer's 1,000 ml @ 100 mls/hr Q10H IV 05/01/20 12:30 05/01/20 13:30 DC Metoclopramide HCl (REGLAN INJection) 10 mg Q6HP PRN IV NAUSEA OR VOMITING 05/01/20 12:30 05/01/20 13:30 DC Ondansetron HCl (ZOFRAN INJection) 4 mg Q4H PRN IV NAUSEA OR VOMITING 05/01/20 12:00 Ondansetron HCl (ZOFRAN INJection) 4 mg Q4HP PRN IV NAUSEA OR VOMITING 05/01/20 12:30 05/01/20 13:30 DC Oxycodone/ Acetaminophen (Percocet 5mg/ 325mg Tablet) 1 tab ASDIRECTED PRN PO PAIN LEVEL 1-4 05/01/20 12:30 05/01/20 13:10 DC 05/01/20 13:10 Oxycodone/ Acetaminophen (Percocet 5mg/ 325mg Tablet) 2 tab Q4HP PRN PO PAIN LEVEL 8-10 05/01/20 12:00 05/02/20 05:14 Allergies Coded Allergies: No Known Drug Allergies (Verified Allergy, Unknown, 09/22/18) Objective Physical Examination Examination GENERAL APPEARANCE:Patient seen, laying in bed, awake, alert, and oriented. Comfortable, in no acute distress. SKIN: Warm and moist. BREAST: Right and left soft, non-tender incisions intact. WOLFGANG drains: 25/55 cc/24 hr. NAC: Viable, warm, symmetrical, mild post-op ecchymosis, no expanding hematoma. LUNGS: Clear to auscultation bilaterally. No wheezing appreciated. HEART: No chest wall abnormalities. Regular rate and rhythm with no murmurs appreciated. ABDOMEN: Abdomen is soft, non-tender, non-distended. EXTREMITIES: No edema identified. No calf tenderness. Vital Signs Vital Signs Date Time Temp Pulse Resp B/P (MAP) Pulse Ox O2 Delivery O2 Flow Rate FiO2 05/02/20 05:17 98.0 97 18 112/69 (83) 100 Room Air 05/01/20 11:50 2 I&Os I&O- Last 24 Hours up to 6 AM 05/02/20 06:00 Intake Total 4170 ml Output Total 295 ml Balance 3875 ml Impression Status post bilateral breast reduction postop day 1. Stable for discharge. Dressings changed today. Keep dressings on, compression bra on at all times. Empty WOLFGANG drains daily, document amount. No heavy lifting. No showering. Follow-up plastic surgery Tuesday. Plan / VTE VTE Prophylaxis Ordered?: Yes DENICE COTE DO May 02, 2020 08:56
[2020-05-02] MEDS ORDERED: PERCOCET PO (09:01)
--- OUTSIDE RECORDS SUMMARY | 2020-05-09 09:42 | CCD | Continuity of Care Document ---
Author Author Ivon COTE DO Organization Unknown Address [address] [place] [address] Phone [phone] Care Team Providers Care Director Cardiac Name Role Phone Tesfaye Ayala Unavailable Problems [...] lb BMI (Body Mass Index) 31.6 kg/m2 Erhard Body Weight 120 lb Weight 83.462 kg BSA (Body Surface Area) 1.89 m2 08/29/2019 2:08pm BP Systolic 110 mmHg BP Diastolic 78 mmHg Height 64 inches 5'4" Weight 184.25 lb BMI (Body Mass Index) 31.6 kg/m2 Erhard Body Weight 120 lb Weight 83.576 kg BSA (Body Surface Area) 1.89 m2 Results Test Acquired Date Facility Test Result H/L Range Note Laboratory test finding 05/01/2020 [facility] [address] [place] [address] [phone] Pathology Request For Service (SEE NOTE) 1 1 FINAL DIAGNOSIS A - Breast, right, reduction: Skin and benign breast parenchyma. B - Breast, left, reduction: Skin and benign breast parenchyma. 05/02/2020 - 1149 CLINICAL DIAGNOSIS Bilateral breast hypertrophy 05/01/2020 - 1520 GROSS DIAGNOSIS A - Received in formalin labeled "right breast tissue, 930 grams" consists of multiple fragments of yellow-tavares fibroadipose tissue and attached dark brown skin measuring 13.0 x 12.5 x 7.0 cm in aggregate. Emt Basic sections in one block. B - Received in formalin labeled "left breast tissue, 916 grams" consists of multiple fragments of yellow-tavares fibroadipose tissue and attached dark brown skin measuring 13.0 x 12.5 x 8.0 cm in aggregate. Emt Basic sections in one block. -SV 05/01/2020 - 1520 Signed KWADWO NATION MD 05/02/2020 1149 Procedures Date Code Description Status 05/01/2020 27116 Reduction Mammaplasty (Female On ly) Completed Medical Devices Description No Information Available Encounters Type Date Location Provider Dx Diagnosis Office Visit 12/19/2019 2:00p [facility] Plastic Surgery Olesya Cote, DO N62 Hypertrophy of breast N64.81 Ptosis of breast Assessments Date Code Description Provider 05/01/2020 N62 Hypertrophy of breast Olesya Pale y, DO 04/21/2020 N62 Hypertrophy of breast Olesya Pale y, DO 04/21/2020 Z01.818 Encounter for other preprocedura l examination Olesya Anival, DO 12/19/2019 N62 Hypertrophy of breast Olesya Pale y, DO 12/19/2019 N64.81 Ptosis of breast Olesya Anival, DO Plan of Treatment No Information Available Functional Status Description No Information Available Mental Status Description No Information Available Referrals Description No Information Available
--- OUTSIDE RECORDS SUMMARY | 2020-05-09 09:43 | CCD ---
Author Author [facility] Organization [facility] Address Unknown Phone Unavailable Care Team Providers Care Senior Construction Project Manager Name Role Phone ROCAEL, E DENICE DO Unavailable Unavailable ROCAEL, E DENICE DO Unavailable Unavailable ROCAEL, E DENICE DO Unavailable Unavailable ROCAEL, E DENICE DO Unavailable Unavailable ROCAEL, E DENICE DO Unavailable Unavailable ROCAEL, E DENICE DO Unavailable Unavailable ROCAEL, E DENIEC DO Unavailable Unavailable ROCAEL, E DENICE DO [...] is protected by Article 27-F of the [facility] Public Health law. If you continue you may have access to information: Regarding HIV / AIDS; Provided by facilities licensed or operated by the [facility] Office of Mental Health; or Provided by the [facility] Office for People With Developmental Disabilities. If such information is present, then the following [facility] mandated warning applies: This information has been [...] law may result in a fine or penitentiary sentence or both. A general authorization for the release of medical or other information is NOT sufficient authorization for further disc losure. Encounters Encounter Providers Location Date Indications Data Source(s ) Outpatient Attender: DENICE Granado/Azra/Jones/Leopoldo hardy 12/19/2019 02:00:00 PM EDT [facility] ([facility], ) Outpatient Attender: DENICE Granado/Azra/Jones/Marcelled hayley 08/29/2019 02:00:00 PM EDT [facility] ([facility], ) Insurance Providers Payer name Policy type / Coverage type Policy ID Covered libertarian ID Covered libertarian's relationship to colon Policy Colon Plan Information [facility] [id number] Surgeries/Procedures Procedure Description Date Indications Data Source(s) Reduction Mammaplasty (Female Only) 05/01/2020 12:00:0 0 AM EST [facility] ([facility], ) Results ID Date Data Source [id number] 05/01/2020 11:18:00 AM EST [facility] Name Value Range Interpretation Code Description Data Genevieve rce(s) Supporting Document(s) Surgical pathology study Laboratory test result [facility] ([facility], ) FINAL DIAGNOSIS A - Breast, right, reduction: [...] x 12.5 x 7.0 cm in aggregate. Fashion Design Professor sections in one block. B - Received in formalin labeled "left breast tissue, 916 grams" consists of multiple fragments of yellow-tavares fibroadipose tissue and attached dark brown skin measuring 13.0 x 12.5 x 8.0 cm in aggregate. Fashion Design Professor sections in one block. -SV 05/01/2020 - 1520 Signed KWADWO NATION MD 05/02/2020 1149 ID Date Data Source [id number] 04/28/2020 11:11:00 AM EST [facility] Name Value Range Interpretation Code Description Data Genevieve rce(s) Supporting Document(s) SARS coronavirus 2 RNA Not Detected [facility] [place] This lab was ordered by [facility] Laboratory and reported by [facility]. Procedure Vital Signs ID Date Data Source UNK Name Value Range Interpretation Code Description Data Source(s) Body surface area Derived from formula 1.89 m2 1.89 m2 [facility] ([facility]) Body weight 83.462 kg 83.462 kg [facility] ([facility]) [place] body weight 120 [lb_av] 120 [lb_av] [facility] ([facility]) Body mass index (BMI) [Ratio] 31.6 kg/m2 31.6 k g/m2 [facility] ([facility]) Body weight 184.00 [lb_av] 184.00 [lb_av] [facility] ([facility]) Body height 64 [in_i] 64 [in_i] [facility] ([facility]) 5'4" Body temperature 98.7 [degF] 98.7 [degF] [facility] ([facility]) Respiratory rate 14 /min 14 /min [facility] ( [facility]) Heart rate 74 /min 74 /min [facility] ([facility]) Diastolic blood pressure 76 mm[Hg] 76 mm[Hg] [facility] ([facility]) Systolic blood pressure 122 mm[Hg] 122 mm[Hg] [facility] ([facility]) Body surface area Derived from formula 1.89 m2 1.89 m2 [facility] ([facility]) Body weight 83.576 kg 83.576 kg [facility] ([facility]) [place] body weight 120 [lb_av] 120 [lb_av] [facility] ([facility]) Body mass index (BMI) [Ratio] 31.6 kg/m2 31.6 k g/m2 [facility] ([facility]) Body weight 184.25 [lb_av] 184.25 [lb_av] [facility] ([facility]) Body height 64 [in_i] 64 [in_i] [facility] ([facility]) 5'4" Diastolic blood pressure 78 mm[Hg] 78 mm[Hg] [facility] ([facility]) Systolic blood pressure 110 mm[Hg] 110 mm[Hg] [facility] ([facility])
== END 2020-05-02 11:45 | disposition home or self-care (01) ==
LOC: M MS5PR 06:21 → M SDC 06:21 → EDSTATUS 07:30 → M SDC 13:50 → M MS5PR 13:50 → M SDC 05-02 11:45
PROVIDERS: ADMIT Plastic Surgery Surgery of the Hand; ATTEND Plastic Surgery Surgery of the Hand
DX: N62 Hypertrophy of breast (principal)
CPT/HCPCS: 19318; 81025; 88305; 96365; 96366; C9290; J0131; J0690; J1100; J1644; J1885; J2250; J2405; J2765; J3010

== ENCOUNTER 2020-08-25 10:12 | Emergency (ER) | payer OTHER ==
[~2020-08-25] VITALS: Ht 162.6 cm; Wt 77.7 kg
[~2020-08-25 10:12] MED LIST changes: -DIBU10OI TOP; +DIBU28OI2 TOP; -HEPARIN SOD (PORCINE) 5000UNITS/ML 1ML VIAL/SYRINGE SQ ONE; -LR 1,000 ML IV ONE; +PERCOCET PO; -ceFAZolin SOD 2 GM in IV 1 EA IV ONE
[2020-08-25 10:45] VITALS: BP 132/79
== END 2020-08-25 13:57 | disposition left against medical advice (07) ==
LOC: M ED 10:12
DX: Z53.21 Procedure and treatment not carried out due to patient leaving prior to being seen by health care provider (principal)

== ENCOUNTER 2020-08-27 00:59 | Emergency (ER) | payer OTHER ==
[~2020-08-27] VITALS: Ht 162.6 cm; Wt 78.2 kg
[2020-08-27] MEDS ORDERED: ACET-683 PO (01:23)
[2020-08-27] MEDS ORDERED: METOCLOPRAMIDE INJ 10MG/2ML VIAL (J2765 PER 1) IV ONE (03:25)
[2020-08-27 05:35] VITALS: BP 123/74
== END 2020-08-27 05:40 | disposition home or self-care (01) ==
LOC: M ED 00:59
DX: O99.355 Diseases of the nervous system complicating the puerperium (principal); R51.9 Headache, unspecified; Z3A.00 Weeks of gestation of pregnancy not specified
CPT/HCPCS: 96374; 99284; J2765

== ENCOUNTER → 2020-10-03 | Outpatient (CLI) | payer OTHER ==
[~2020-10-03] MED LIST changes: +ACET-683 PO
--- NOTE | 2020-10-03 11:21 | REP ---
INDICATION: VAGINAL BLEEDING. COMPARISON: None. TECHNIQUE: Real-time sonographic evaluation of gravid uterus performed. FINDINGS: There is a single living intrauterine gestation. The estimated gestational age is 12 weeks 2 days based on a crown-rump length of 57 mm. The EDC is 04/15/2021. The heart rate is 160 beats per minute. There is a subchorionic hemorrhage at the margin of the posterior placenta 1.6 x 0.5 x 1.6 cm. With duplex Doppler evaluation, there is no evidence of ovarian torsion bilaterally. There is a cystic structure of the right ovary 2.6 x 1.8 x 2.4 cm likely representing a corpus luteum. IMPRESSION: Single living intrauterine gestation 12 weeks 2 days, EDC 04/15/2021. heart rate 160 beats per minute. Subchorionic hemorrhage 1.6 x 0.5 x 1.6 cm at the margin of the posterior placenta. <Electronically signed by Del Palomares > 10/03/20 [id number]
== END ==
LOC: M RAD 10:27
PROVIDERS: ATTEND Obstetrics & Gynecology
DX: O46.91 Antepartum hemorrhage, unspecified, first trimester (principal); Z3A.12 12 weeks gestation of pregnancy

== ENCOUNTER 2020-11-30 14:51 | Outpatient (CLI) | payer OTHER ==
[~2020-11-30] VITALS: Ht 162.6 cm; Wt 79.5 kg
[2020-11-30 15:09] VITALS: BP 134/74
== END 2020-11-30 18:15 | disposition left against medical advice (07) ==
LOC: M LDO 14:51
PROVIDERS: ATTEND Obstetrics & Gynecology
DX: O46.90 Antepartum hemorrhage, unspecified, unspecified trimester (principal); Z3A.00 Weeks of gestation of pregnancy not specified; Z53.21 Procedure and treatment not carried out due to patient leaving prior to being seen by health care provider
CPT/HCPCS: G0378; G0463